=== PATIENT | male | born 1995 | race Hispanic/Latino ===

== ENCOUNTER → 2019-11-02 13:20 | Outpatient (CLI) | payer OTHER, SELFPAY ==
--- NOTE | 2019-11-02 13:24 | DI.RAD.S_ITS ---
PROCEDURE: XR KNEE LT 3V INDICATIONS: heavy object fell on LE, r/o fx TECHNIQUE: 3 views of the knee were acquired. COMPARISON: None. FINDINGS: Bones: No fractures or dislocations. No suspicious bony lesions. No significant patellar subluxation is seen. Soft tissues: No joint effusion. No suspicious soft tissue calcifications. IMPRESSION: No acute left knee fracture or dislocation. No significant joint effusion. Dictated by: Lauro Carias M.D. on 11/02/2019 at 13:57 Approved by: Lauro Carias M.D. on 11/02/2019 at 13:58
--- NOTE | 2019-11-02 13:24 | DI.RAD.S_ITS ---
PROCEDURE: XR ANKLE LT MIN 3V INDICATIONS: heavy object fell on LE, r/o fx TECHNIQUE: 3 views of the ankle were acquired. COMPARISON: None. FINDINGS: Bones: No fractures or dislocations. Ankle mortise is normally aligned. No suspicious bony lesions. Soft tissues: No tibiotalar joint effusion. Achilles tendon appears normal. IMPRESSION: No acute ankle fracture or dislocation. Dictated by: Lauro Carias M.D. on 11/02/2019 at 13:54 Approved by: Lauro Carias M.D. on 11/02/2019 at 13:57
== END ==
PROVIDERS: Visit Provider Physician Assistant
DX: S90.02XA Contusion of left ankle, initial encounter (principal); S80.02XA Contusion of left knee, initial encounter; W20.8XXA Other cause of strike by thrown, projected or falling object, initial encounter
CPT/HCPCS: 73562; 73610

== ENCOUNTER → 2023-10-05 07:41 | Outpatient (CLI) | payer BC, SELFPAY ==
[2023-10-05 08:33] LABS: Influenza A - CEPHEID Flu A POSITIVE (NEGATIVE); Influenza B - CEPHEID Flu B NEGATIVE (NEGATIVE); Respiratory Syncytial Virus Negative (Negative)
[2023-10-05 08:34] LABS: COVID-19 CEPHEID 4-PLEX PCR Negative (Negative)
== END ==
PROVIDERS: Visit Provider Nurse Practitioner Family
DX: R50.9 Fever, unspecified (principal)
CPT/HCPCS: 0241U